=== PATIENT | female | born 1945 | race Caucasian/White ===

== ENCOUNTER 2017-01-08 07:11 | Day surgery (SDC) | payer MEDICARE, OTHER ==
--- NOTE | ~2017-01-08 | EGD ---
EGD REPORT [facility] [address] [address] NAME: LON KHALIL : [birth year] STATUS : REG [facility]#: [id number] AGE: 71 ADM/REG DATE : 01/08/17 MR#: [id number] REPORT SERV DATE: 01/08/17 DICTATED BY: BUBBA FREDERICK DATE: 01/08/17 REPORT STATUS : Draft [facility]ANSCRIBED BY: [facility] DATE: 01/08/17 Endoscopy Center Patient Name: Lon Khalil Date of : 1945 Attending MD: BUBBA FREDERICK MD Procedure Date No Time: 01/08/2017 Procedure: Upper GI endoscopy Indications: Dysphagia Referring MD: EVANGELINA CISNEROS Medicines: Propofol per Anesthesia Complications: No immediate complications. Procedure: Pre-Anesthesia Assessment: - ASA Grade Assessment: III - A patient with severe systemic disease. After obtaining informed consent, the endoscope was passed under direct vision. Throughout the procedure, the patient's blood pressure, pulse, and oxygen saturations were monitored continuously. The GIF [id number] [id number] was introduced through the mouth, and advanced to the third part of duodenum. The upper GI endoscopy was accomplished without difficulty. The patient tolerated the procedure well. Findings: A benign-appearing, intrinsic mild stenosis was found at the gastroesophageal junction and was traversed. A guidewire was placed and the scope was withdrawn. Dilation was performed with a Savary dilator with no resistance at 54 Fr. One 5 mm sessile polyp with no bleeding and no stigmata of recent bleeding was found in the cardia. The polyp at the cardia had been biopsied in 2010 and was hyperplastic The exam of the stomach was otherwise normal. The examined duodenum was normal. Impression: - Benign-appearing esophageal stricture. Dilated. - One gastric polyp. - Normal examined duodenum. Procedure Code(s): --- Professional --- 09208, Esophagogastroduodenoscopy, flexible, transoral; with insertion of guide wire followed by passage of dilator(s) through esophagus over guide wire Diagnosis Code(s): --- Professional --- K22.2, Esophageal obstruction EGD REPORT [facility] [address] [facility] [place]. [address] NAME: LON KHALIL : [birth year] STATUS : REG [facility] PAT#: [id number] AGE: 71 ADM/REG DATE : 01/08/17 MR#: [id number] REPORT SERV DATE: 01/08/17 DICTATED BY: BUBBA FREDERICK. DATE: 01/08/17 REPORT STATUS : Draft TRANSCRIBED BY: [employer] DATE: 01/08/17 K31.7, Polyp of stomach and duodenum R13.10, Dysphagia, unspecified CPT copyright 2013 [employer]. All rights reserved. The codes documented in this report are preliminary and upon plan nurse review may be revised to meet current compliance requirements. Attending Participation: I personally performed the entire procedure. Bubba Frederick MD BUBBA FREDERICK MD 01/08/2017 9:29 AM This report has been signed electronically. Number of Addenda: 0 Note Initiated On: 01/08/2017 8:46 AM Scope Withdrawal Time 0 hours 0 minutes 0 seconds [address] [facility] [place] [address]
--- NOTE | ~2017-01-08 | EGD ---
EGD REPORT [facility] [address] [address] NAME: LON KHALIL : 41 STATUS : REG [facility]#: [id number] AGE: 71 ADM/REG DATE : 01/08/17 MR#: [id number] REPORT SERV DATE: 01/08/17 DICTATED BY: BUBBA FREDERICK DATE: 01/08/17 REPORT STATUS : Draft [facility]IB[facility]: [facility] DATE: 01/08/17 Endoscopy Center Patient Name: Lon Khalil Date of : 1945 Attending MD: BUBBA FREDERICK MD Procedure Date No Time: 01/08/2017 Procedure: Colonoscopy Indications: High risk colon cancer surveillance: Personal history of colonic polyps Referring MD: EVANGELINA CISNEROS Medicines: Propofol per Anesthesia Complications: No immediate complications. Procedure: Pre-Anesthesia Assessment: - ASA Grade Assessment: III - A patient with severe systemic disease. After I obtained informed consent, the scope was passed under direct vision. Throughout the procedure, the patient's blood pressure, pulse, and oxygen saturations were monitored continuously. The PCF [id number] was introduced through the anus and advanced to the terminal ileum. The colonoscopy was performed without difficulty. The patient tolerated the procedure well. The quality of the bowel preparation was excellent. Findings: Two flat polyps were found in the proximal ascending colon. The polyps were 2 to 5 mm in size. These polyps were removed with a cold biopsy forceps. Resection and retrieval were complete. A flat polyp was found in the proximal ascending colon. The polyp was 3 mm in size. The polyp was removed with a cold biopsy forceps. Resection and retrieval were complete. Multiple small-mouthed diverticula were found in the sigmoid colon. The retroflexed view of the distal rectum and anal verge was normal and showed no anal or rectal abnormalities. Impression: - Two 2 to 5 mm polyps in the proximal ascending colon. Resected and retrieved. - One 3 mm polyp in the proximal ascending colon. Resected and retrieved. - Diverticulosis in the sigmoid colon. Recommendation: - Return to previous diet today. - Continue present medications. - Await pathology results. - Repeat colonoscopy at appointment to be scheduled for EGD REPORT [address] [address] NAME: LON KHALIL : 41 STATUS : REG [facility] [place] [place] PAT#: [id number] AGE: 71 ADM/REG DATE : 01/08/17 MR#: [id number] REPORT SERV DATE: 01/08/17 DICTATED BY: BUBBA FREDERICK DATE: 01/08/17 REPORT STATUS : Draft TRANSCRIBED BY: [employer] DATE: 01/08/17 surveillance based on pathology results. - The findings and recommendations were discussed with the patient and their family. - After the procedure, if you experience any pain in abdomen or chest,shortness of breath,fever,chills,blood in stool,rectal bleeding,vomiting of any material,nausea,black stools or weakness or dizziness, GO TO THE EMERGENCY IMMEDIATELY!!!!!!!!! Procedure Code(s): --- Professional --- 78111, Colonoscopy, flexible, proximal to splenic flexure; with biopsy, single or multiple Diagnosis Code(s): --- Professional --- D12.2, Benign neoplasm of ascending colon K57.30, Diverticulosis of large intestine without perforation or abscess without bleeding Z86.010, Personal history of colonic polyps CPT copyright 2013 [employer]. All rights reserved. The codes documented in this report are preliminary and upon air commodore review may be revised to meet current compliance requirements. Attending Participation: I personally performed the entire procedure. Bubba Frederick MD BUBBA FREDERICK MD 01/08/2017 9:34 AM This report has been signed electronically. Number of Addenda: 0 Note Initiated On: 01/08/2017 8:42 AM Scope Withdrawal Time 0 hours 14 minutes 37 seconds [address] [address]
[~2017-01-08 07:11] MED LIST: ASAB PO; BACTRONASA NAS; CATPATCH1 TOP; CENTRUM PO; COLCRYS0.6 MG PO; COREG12 PO; COZAAR100 MG PO; DEPO-ESTRAD5 MG/1 ML IM; ELOCON CREAM 0.15 GM TOP; HYDRALAZINE100 MG PO; L20 PO; LEVOTHYROXIN75 MCG PO; LIVALO2 MG PO; MAG6464 MG PO; NEXIUM40 PO; NYSTATIN-TRIAMC15 G1 TOP; REFRESH OPH SO0.3 ML OPH; ROCALTROL 0.0.25 MCG PO; SPIRO25 PO; TOPROL XL200 MG PO; TRULICITY0.75 MG/0. SQ; TYLENOL ARTH650 MG PO; VITAMIN D1000 UNI1 PO; WELCHOL 625 MG625 MG PO; Z100 PO
== END 2017-01-08 23:59 | disposition home or self-care (01) ==
LOC: DMU 07:11
PROVIDERS: Internal Medicine Gastroenterology
PROC: 0DBK8ZZ Excision of Ascending Colon, Via Natural or Artificial Opening Endoscopic (ICD-10-PCS; principal; 2017-01-08 09:00)
PROC: 0D748ZZ Dilation of Esophagogastric Junction, Via Natural or Artificial Opening Endoscopic (ICD-10-PCS; 2017-01-08 09:00)
DX: D12.2 Benign neoplasm of ascending colon (principal); K57.30 Diverticulosis of large intestine without perforation or abscess without bleeding; K22.2 Esophageal obstruction; K31.7 Polyp of stomach and duodenum; K21.9 Gastro-esophageal reflux disease without esophagitis; I12.9 Hypertensive chronic kidney disease with stage 1 through stage 4 chronic kidney disease, or unspecified chronic kidney disease; E11.22 Type 2 diabetes mellitus with diabetic chronic kidney disease; N18.3 Chronic kidney disease, stage 3 (moderate); E03.9 Hypothyroidism, unspecified; G47.33 Obstructive sleep apnea (adult) (pediatric); E78.00 Pure hypercholesterolemia, unspecified; M19.90 Unspecified osteoarthritis, unspecified site; M10.9 Gout, unspecified; Z79.818 Long term (current) use of other agents affecting estrogen receptors and estrogen levels; Z86.010 Personal history of colon polyps; Z79.82 Long term (current) use of aspirin; Z79.899 Other long term (current) drug therapy; Z88.1 Allergy status to other antibiotic agents; Z88.2 Allergy status to sulfonamides; Z88.5 Allergy status to narcotic agent; Z96.1 Presence of intraocular lens; Z98.41 Cataract extraction status, right eye; Z98.42 Cataract extraction status, left eye; Z90.49 Acquired absence of other specified parts of digestive tract; Z90.710 Acquired absence of both cervix and uterus; Z98.890 Other specified postprocedural states
CPT/HCPCS: 82962; 88305